=== PATIENT | male | born 1945 | race Caucasian/White ===

== ENCOUNTER → 2016-12-04 | Outpatient (CLI) | payer MEDICARE, OTHER | END | disposition home or self-care (01) | LOC: GMAL 10:39 | PROVIDERS: ATTEND Family Medicine | DX: D51.3 Other dietary vitamin B12 deficiency anemia (principal); E55.9 Vitamin D deficiency, unspecified ==

== ENCOUNTER → 2017-07-16 | Outpatient (CLI) | payer MEDICARE, OTHER | END | disposition home or self-care (01) | LOC: GMAL 10:41 | PROVIDERS: ATTEND Family Medicine | DX: Z12.5 Encounter for screening for malignant neoplasm of prostate (principal); E55.9 Vitamin D deficiency, unspecified | CPT/HCPCS: 82306; G0103 ==

== ENCOUNTER → 2017-08-13 | Outpatient (CLI) | payer MEDICARE, OTHER | LOC: GMAL 17:10 | PROVIDERS: ATTEND Family Medicine | DX: L03.116 Cellulitis of left lower limb (principal) ==

== ENCOUNTER → 2017-08-17 | Outpatient (CLI) | payer MEDICARE, OTHER ==
--- NOTE | 2017-08-17 10:12 | US ---
EXAM DESCRIPTION: Extremity,Lower Efrain Arteries CLINICAL HISTORY: 72 years Male, PVD COMPARISON: None. TECHNIQUE: Bilateral lower extremity duplex examination with grayscale, color Doppler, and spectral pulse Doppler evaluation. FINDINGS: On the right, common femoral artery demonstrates triphasic flow at 91 cm/s. Biphasic flow pattern with velocities between 84 and 114 cm/s through the superficial femoral artery is present. Biphasic wave pattern is persistent in the popliteal artery and 68 cm/s with normal velocities in the peroneal and posterior tibial artery with biphasic flow but dampened biphasic flow in the dorsalis pedis artery at 16 cm/s. On the left, the common femoral artery demonstrates triphasic flow at 82 cm/s with biphasic pattern in the superficial femoral artery between 80 and 130 cm/s. The popliteal artery demonstrates biphasic flow with peak velocities of 52 cm/s. Spectral broadening with biphasic flow at 79 cm/s in the peroneal artery is noted with a similar pattern in the posterior tibial artery at 103 cm/s. Dorsalis pedis vessel again demonstrates dampened biphasic flow at 21 cm/s. 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 More normal flow in each posterior tibial artery demonstrated. Correlation with ankle brachial indices particularly in reference to the dorsalis pedis vessel recommended. Electronically signed by: Ayan Atkins MD 08/17/2017 10:10 AM CDT
== END ==
LOC: US 08:24
PROVIDERS: ATTEND Family Medicine
DX: R60.0 Localized edema (principal); I73.9 Peripheral vascular disease, unspecified

== ENCOUNTER → 2017-08-18 | Outpatient (CLI) | payer MEDICARE, OTHER | LOC: LAB.O 13:28 | PROVIDERS: ATTEND Family Medicine | DX: R19.7 Diarrhea, unspecified (principal) ==

== ENCOUNTER → 2017-09-10 | Outpatient (CLI) | payer MEDICARE, OTHER | LOC: GMAL 15:05 | PROVIDERS: ATTEND Family Medicine | DX: D50.8 Other iron deficiency anemias (principal) ==

== ENCOUNTER → 2019-04-25 | Outpatient (CLI) | payer MEDICARE, OTHER | LOC: GMAL 10:28 | PROVIDERS: ATTEND Family Medicine | DX: R53.83 Other fatigue (principal); E55.9 Vitamin D deficiency, unspecified; I10 Essential (primary) hypertension; E11.9 Type 2 diabetes mellitus without complications ==

== ENCOUNTER → 2019-12-16 | Outpatient (CLI) | payer MEDICARE, OTHER | LOC: GMAL 12:56 | PROVIDERS: ATTEND Family Medicine | DX: D51.3 Other dietary vitamin B12 deficiency anemia (principal); E55.9 Vitamin D deficiency, unspecified; Z12.5 Encounter for screening for malignant neoplasm of prostate; R53.83 Other fatigue; E11.9 Type 2 diabetes mellitus without complications; I10 Essential (primary) hypertension; E78.2 Mixed hyperlipidemia | CPT/HCPCS: 82607; 84443; G0103 ==

== ENCOUNTER 2020-05-18 18:17 | Inpatient (IN) | payer MEDICARE, OTHER ==
--- NOTE | 2020-05-18 18:19 | ED.PDOC ---
History of Present Illness - General Stated Complaint: Fever cough and difficulty breathing Time Seen by Provider: 05/18/20 18:19 Source: patient Exam Limitations: no limitations - History of Present Illness Initial Comments: Patient complains of cough fever and shortness of breath for at least 7 days.He is unaware of any Covid exposure testing or vaccination.He is not complaining of chest pain. Patient denies upper respiratory symptoms. Timing/Duration: 1 week Severity: severe Improving Factors: rest Worsening Factors: movement Associated Symptoms: cough, fever/chills, shortness of breath Allergies/Adverse Reactions: Allergies Penicillins Allergy (Verified 05/18/20 18:36) Home Medications: Ambulatory Orders Acebutolol HCl [Sectral] 400 mg PO BID 11/20/15 Glipizide [Glipizide ER] 5 mg PO DAILY 11/20/15 Hydrochlorothiazide 50 mg PO DAILY 11/20/15 Quinapril HCl [Accupril] 40 mg PO BID 11/20/15 amLODIPine BESYLATE [Norvasc] 10 mg PO DAILY 11/20/15 Aspirin [Enteric Coated Aspirin] 325 mg PO DAILY #30 tab 11/21/15 Atorvastatin Calcium [Lipitor] 40 mg PO DAILY #30 tab 11/21/15 Review of Systems - Review of Systems Constitutional: States: chills, fever, malaise, weakness EENTM: States: no symptoms reported Respiratory: States: cough, short of breath Cardiology: States: no symptoms reported Gastrointestinal/Abdominal: States: no symptoms reported Genitourinary: States: no symptoms reported Musculoskeletal: States: no symptoms reported Skin: States: no symptoms reported Neurological: States: no symptoms reported Endocrine: States: no symptoms reported Hematologic/Lymphatic: States: no symptoms reported Past Medical History (General) - Patient Medical History Hx Seizures: No Hx Stroke: No Hx Dementia: No Hx Asthma: No Hx of COPD: No Hx Cardiac Disorders: Yes Hx Congestive Heart Failure: No Hx Pacemaker: No Hx Hypertension: Yes Hx Thyroid Disease: No Hx Diabetes: Yes Hx Gastroesophageal Reflux: No Hx Renal Disease: No Hx Cancer: No Hx of HIV: No Hx Hepatitis C: No Hx MRSA: No - Vaccination History Hx Tetanus, Diphtheria Vaccination: No Hx Influenza Vaccination: No Hx Pneumococcal Vaccination: Yes - Social History Hx Tobacco Use: No Hx Chewing Tobacco Use: No Hx Alcohol Use: No Hx Substance Use: No Hx Substance Use Treatment: No Hx Depression: No Hx Physical Abuse: No Hx Emotional Abuse: No Hx Suspected Abuse: No Family Medical History - Family History Mother Family History: Unknown Living Status: Unknown Physical Exam - Physical Exam General Appearance: Alert, Obvious distress, Ill Appearing Eye Exam: bilateral normal Ears, Nose, Throat: normal pharynx, other Neck: non-tender, full range of motion, supple Respiratory: decreased breath sounds, rales - Both lower lobes Cardiovascular/Chest: no edema, JVD Gastrointestinal/Abdominal: normal bowel sounds, non tender, soft Back Exam: normal inspection, no CVA tenderness Extremity: normal range of motion, no pedal edema, no calf tenderness Neurologic: floor waxer II-XII nml as tested, no motor/sensory deficits, alert, oriented x 3 Skin Exam: other - Cool and dry, pallor Comments: Initial oxygen saturation on room air 82% Progress - Progress Progress: 05/18/20 19:35 Comfortable now with SaO2 91 to 92% on nasal cannula 6 L/min. IV ceftriaxone 1 g, azithromycin 500 mg, and Decadron 10 mg given. 05/18/20 19:36 05/18/20 21:08 Patient comfortable without distress. SaO2 93% on 6 L nasal cannula. Discussed with hospitalist, nurse practitioner [place]: Will admit to [facility]. 05/18/20 Remdesivir 200 mg IV ordered. - Results/Orders Results/Orders: Electrocardiogram: Sinus tachycardia, 119/min. No significant interval changes. No ST segment abnormalities. EXAMINATION: Chest x-ray one view. INDICATION: Cough and fever COMPARISON: None TECHNIQUE: Frontal radiograph chest. FINDINGS: The cardiac silhouette is enlarged. Bilateral mid and lower lung zone airspace opacities, worse on the left. There is no pneumothorax. IMPRESSION: Bilateral airspace opacities, worse on the left. Findings are suspicious for atypical infections including COVID pneumonia. Continued follow-up is recommended Electronically signed by: Francy Johnson MD 05/18/2020 7:36 PM [facility] 05/18/20 18:30 BLOOD CULTURE Stat EKG STAT Oxygen STAT Pulse Ox, Continuous Monitoring STAT 05/18/20 19:00 BLOOD CULTURE Stat 05/18/20 20:22 CTA Chest [CT] Stat 05/18/20 21:07 Remdesivir 200 mg Sodium Chloride 0.9% 250Ml [NS 250ml] 250 ml IVPB ONCE 05/19/20 18:30 Oxygen STAT Pulse Ox, Continuous Monitoring STAT 05/20/20 18:30 Pulse Ox, Continuous Monitoring STAT Laboratory Results - last 24 hr 05/18/20 05/18/20 05/18/20 18:31 18:45 18:45 WBC 5.2 RBC 4.71 Hgb 14.5 Hct 42.3 MCV 89.7 MCH 30.9 MCHC 34.4 RDW 13.4 Plt Count 166 MPV 9.2 Absolute Neuts (auto) 3.90 Absolute Lymphs (auto) 0.60 L Absolute Monos (auto) 0.70 Absolute Eos (auto) 0.00 Absolute Basos (auto) 0.00 Neutrophils % 75.0 Lymphocytes % 11.4 L Monocytes % 13.2 H Eosinophils % 0.1 L Basophils % 0.3 PT INR PTT (SP) 29.3 Fibrinogen D-Dimer, Quantitative 829.0 H* pCO2 35 pO2 55 L HCO3 26.2 ABG pH 7.488 H ABG O2 Saturation 91.2 L ABG Base Excess 3.2 ABG Deoxyhemoglobin 8.6 H Oxyhemoglobin % 89.5 L Carboxyhemoglobin % 1.2 Methemoglobin % Sat 0.7 Calc Total Hemoglobin 15.2 Sodium Potassium Chloride Carbon Dioxide Anion Gap BUN Creatinine BUN/Creatinine Ratio Random Glucose Serum Osmolality Lactic Acid Calcium Magnesium Ferritin Total Bilirubin AST ALT Alkaline Phosphatase LD Total Creatine Kinase Troponin I C-Reactive Protein B-Natriuretic Peptide Serum Total Protein Albumin Globulin Albumin/Globulin Ratio 05/18/20 05/18/20 05/18/20 18:45 18:45 18:45 WBC RBC Hgb Hct MCV MCH MCHC RDW Plt Count MPV Absolute Neuts (auto) Absolute Lymphs (auto) Absolute Monos (auto) Absolute Eos (auto) Absolute Basos (auto) Neutrophils % Lymphocytes % Monocytes % Eosinophils % Basophils % PT INR PTT (SP) Fibrinogen 578 H D-Dimer, Quantitative pCO2 pO2 HCO3 ABG pH ABG O2 Saturation ABG Base Excess ABG Deoxyhemoglobin Oxyhemoglobin % Carboxyhemoglobin % Methemoglobin % Sat Calc Total Hemoglobin Sodium 135 Potassium 3.3 L Chloride 97 L Carbon Dioxide 23 Anion Gap 18.3 H BUN 23 H Creatinine 1.28 BUN/Creatinine Ratio 18.0 Random Glucose 194 H Serum Osmolality 279.1 Lactic Acid Calcium 8.1 L Magnesium 1.7 L Ferritin Total Bilirubin 1.0 AST 79 H ALT 38 Alkaline Phosphatase 41 L LD Total 373 H Creatine Kinase 783 H* Troponin I 0.05 C-Reactive Protein 13.6 H* B-Natriuretic Peptide 82.7 Serum Total Protein 7.1 Albumin 3.2 Globulin 3.9 H Albumin/Globulin Ratio 0.8 L 05/18/20 05/18/20 05/18/20 18:45 18:45 20:17 WBC RBC Hgb Hct MCV MCH MCHC RDW Plt Count MPV Absolute Neuts (auto) Absolute Lymphs (auto) Absolute Monos (auto) Absolute Eos (auto) Absolute Basos (auto) Neutrophils % Lymphocytes % Monocytes % Eosinophils % Basophils % PT 10.6 INR 1.07 PTT (SP) Fibrinogen D-Dimer, Quantitative pCO2 pO2 HCO3 ABG pH ABG O2 Saturation ABG Base Excess ABG Deoxyhemoglobin Oxyhemoglobin % Carboxyhemoglobin % Methemoglobin % Sat Calc Total Hemoglobin Sodium Potassium Chloride Carbon Dioxide Anion Gap BUN Creatinine BUN/Creatinine Ratio Random Glucose Serum Osmolality Lactic Acid 2.2 Calcium Magnesium Ferritin 1191.7 H Total Bilirubin AST ALT Alkaline Phosphatase LD Total Creatine Kinase Troponin I C-Reactive Protein B-Natriuretic Peptide Serum Total Protein Albumin Globulin Albumin/Globulin Ratio Respiratory panel Positive for Covid, negative for all other studies. Vital Signs - 24 hr 05/18/20 05/18/20 05/18/20 18:17 18:28 18:53 Temperature 101.6 F H Pulse Rate [ 114 H 114 H Pulse ox] Respiratory 24 24 Rate Blood Pressure 165/78 [R arm] O2 Sat by Pulse 83 L 91 L Oximetry 05/18/20 05/18/20 05/18/20 18:56 19:41 20:17 Temperature 101.6 F H 100.7 F H 97.7 F Pulse Rate [ 102 H 101 H Pulse ox] Respiratory 22 24 Rate Blood Pressure 155/86 138/81 [R arm] O2 Sat by Pulse 90 L 92 L Oximetry Departure - Departure Clinical Impression: Pneumonia due to 2019-nCoV, Hypoxemia Disposition: Admit Patient Referrals: Wesley Powers III, MD [Primary Care Provider] - 1-2 Weeks Home Medications: Ambulatory Orders Acebutolol HCl [Sectral] 400 mg PO BID 11/20/15 Glipizide [Glipizide ER] 5 mg PO DAILY 11/20/15 Hydrochlorothiazide 50 mg PO DAILY 11/20/15 Quinapril HCl [Accupril] 40 mg PO BID 11/20/15 amLODIPine BESYLATE [Norvasc] 10 mg PO DAILY 11/20/15 Aspirin [Enteric Coated Aspirin] 325 mg PO DAILY #30 tab 11/21/15 Atorvastatin Calcium [Lipitor] 40 mg PO DAILY #30 tab 11/21/15 Decision To Admit - Decistion To Admit Decision to Admit Date: 05/18/20 Decision to Admit Time: 21:10
[2020-05-18] MEDS ORDERED: ACETAMINOPHEN 325 MG TAB PO ONE (18:32)
[2020-05-18] MEDS ORDERED: cefTRIAXone SODIUM 1 GM in SODIUM CHL 0.9% 50ML MIN-BAG+ 50 ML IVPB ONE (19:00)
[2020-05-18] MEDS ORDERED: AZITHROMYCIN IV 500 MG in SODIUM CHLORIDE 0.9% 250ML 250 ML IVPB ONE (19:04)
[2020-05-18] MEDS ORDERED: DEXAMETHASONE INJ 10 MG/ML VIAL IV ONE (19:05)
[2020-05-18] MEDS ORDERED: SODIUM CHLORIDE 0.9% 500ML 500 ML IVS ONE (19:36)
--- NOTE | 2020-05-18 19:38 | RAD ---
EXAMINATION: Chest x-ray one view. INDICATION: Cough and fever COMPARISON: None TECHNIQUE: Frontal radiograph chest. FINDINGS: The cardiac silhouette is enlarged. Bilateral mid and lower lung zone airspace opacities, worse on the left. There is no pneumothorax. IMPRESSION: Bilateral airspace opacities, worse on the left. Findings are suspicious for atypical infections including COVID pneumonia. Continued follow-up is recommended Electronically signed by: Francy Johnson MD 05/18/2020 7:36 PM [facility]
[2020-05-18] MEDS ORDERED: REMDESIVIR 200 MG in SODIUM CHLORIDE 0.9% 250ML 250 ML IVPB ONE (21:07)
--- NOTE | 2020-05-18 21:51 | HP ---
SUPERVISING PHYSICIAN: Juan Miguel Wagner MD CHIEF COMPLAINT: Fever, difficulty breathing. HISTORY OF PRESENT ILLNESS: Mr. Shen is a 75 year-old male with a history of diabetes, hypertension and a previous CVA. He presented to the Emergency Department at the request of his . Apparently, he had been having some increasing shortness of breath along with uncontrollable cough. He denies any known exposures to Covid and he is not aware that he has had any immunization in regard to treatment. Initial laboratory studies showed a white count of 5,200 with a low lymphocytic count. Coagulation studies did show a D- dimer elevated at 829 and blood gas analysis showed hypoxemia with a P02 of 5, that was on 4 liter nasal cannula with pH 7.48, PC02 was normal at 35, bicarb normal and base excess normal. C-reactive protein was elevated at 13.6, lactic acid was normal at 2.2. Chest x-ray, single-view in the Emergency Room per radiology interpretation, showed bilateral airspace opacities, worse on the left, findings were suspicious for atypical infections including Covid pneumonia. His respiratory panel was positive for Covid, negative for influenza and all other bacterial and viral targets as tested. His initial vital signs showed oxygen saturation 82% on room air. He was given breathing treatments and started on nasal cannula which increased his 02 saturation up to 92%. He was started on ceftriaxone and azithromycin and given Decadron. He is not going to be admitted for treatment of Covid pneumonitis. He was admitted in stable condition. PAST MEDICAL HISTORY: 1. Type diabetes mellitus type 2. 2. Hypertension. 3. Benign prostatic hypertrophy. 4. Cerebrovascular accident in 2016 with left hemiparesis and lacunar infarct in putamen PAST SURGICAL HISTORY: 1. Squamous cell carcinoma, Mejias's disease, excised, right upper anterior chest, 2016. 2. Echocardiogram in 2019 showed mild left ventricular hypertrophy with estimate ejection fraction of 65%. CURRENT MEDICATIONS: 1. Tenormin 150 mg daily. 2. Metoprolol 50 mg b.i.d. 3. Pregabalin daily. 4. Lovastatin 20 mg daily. 5. Tylenol No. 3 as needed every 6 hours. 6. Ambien 10 mg daily as needed. 7. Gabapentin 200 mg daily. 8. Plavix 75 mg daily. 9. Glipizide 5 mg daily. 10. Aspirin 325 mg daily. 11. Accupril 40 mg b.i.d. 12. Hydrochlorothiazide 50 mg daily. 13. Norvasc 10 mg daily. ALLERGIES: PENICILLIN. FAMILY HISTORY: Father at age 70 due to cardiovascular disease. Mother in her 90s from advanced. He has one brother who has coronary artery disease and a sister who has type 2 diabetes. SOCIAL HISTORY: The patient retired in 2009 from [employer]. He is and lives in [place]. He drinks approximately 7 times a week. When he drinks he is averaging 4 to 5 drinks, past history of hard liquor. He has never smoked. REVIEW OF SYSTEMS: GENERAL: Positive for fevers, chills, general malaise and weakness. HEENT: Denies headaches, vision changes, sore throat, nasal congestion, earaches. RESPIRATORY: As noted in history of present illness, increasing shortness of breath with persistent cough which is nonproductive. CARDIOVASCULAR: No chest pain, no palpitations or syncopal episodes. GASTROINTESTINAL: No nausea, vomiting or diarrhea. No constipation or abdominal pain. GENITOURINARY: He denies any dysuria or hematuria or polyuria. MUSCULOSKELETAL: Denies arthralgias or joint swelling. SKIN: No unexplained lesions, rashes or moles. NEUROLOGICAL: He denies any motor deficits, no ataxia, seizures or paresthesias. HEMATOLOGICAL: Denies unexplained bleeding, bruising or transfusion reaction. PHYSICAL EXAMINATION: VITAL SIGNS: On presentation to the Emergency Room, temperature 101.6, pulse 114, blood pressure 165/78, respirations 24, oxygen saturation 93% on room air at rest. After breathing treatments showed 91 to 93% on 6 liter nasal cannula. Prior to admission after given Tylenol, his temperature was 97.7. GENERAL: The patient looks to be resting comfortably, no obvious acute distress, although he is mildly tachypneic. He is alert, he is hard of hearing. HEENT: Tympanic membranes are clear bilaterally. Oropharynx is pink, moist without any lesions. NECK: No jugular venous distention. Neck is supple, non-tender. CHEST: Lung sounds diminished therapeutic, no obvious rhonchi, rales, or wheezes. CARDIOVASCULAR: Regular rate and rhythm showing tachycardiac on the monitor. No appreciable murmurs, rubs, or gallops. ABDOMEN: Obese, soft, non-tender, positive bowel sounds. EXTREMITIES: No cyanosis, clubbing, or edema. BACK: Without CVA tenderness or vertebral tenderness. RECTAL: Exam deferred. NEUROLOGIC: He is alert and oriented x3. Cranial nerves II through XII are grossly intact. SKIN: Warm, pink and dry. LABORATORY: Initial white count was 5,200. Coagulation studies show a D-dimer of 829. Normal PT/PTT. Blood gas analysis showed alkalosis with pH of 7.488, bicarb 26, C02 of 55, PC02 of 35, oxygen saturation 91% on 6 liter nasal cannula. base excess normal at 2.3. Chemistries showed a mild hypokalemia with potassium 3.3, anion gap elevated at 18.4, BUN 23, C02 of 23. Creatinine 1.28, glucose 194, calcium 8.1, magnesium a little low at 1.7, lactic normal at 2.2. Bilirubin was normal at 1. AST slightly elevated at 79, ALT normal at 38. CPK 783, ferritin 1197, C-reactive protein 13.6. MICROBIOLOGY: Blood cultures are pending. Respiratory panel was positive for Covid, negative for influenza and all other bacterial and viral targets as tested. RADIOLOGY: Single view chest x-ray in the Emergency Room per radiology interpretation shows bilateral airspace opacities, worse in he left, findings suspicious for atypical infection include Covid pneumonia. ASSESSMENT: 1. Covid pneumonitis. 2. Hypoxic respiratory failure with mild respiratory associated alkalosis secondary to #1. 3. Diabetes mellitus type on oral therapy. 4. Hypokalemia and hypomagnesemia. 5. Hypertension. 6. Benign prostatic hypertrophy. 7. Previous cerebrovascular accident in 2016. No obvious neuro deficits on admission. PLAN: The patient is admitted for treatment of Covid pneumonitis. He was started on Remdesivir, Decadron, azithromycin and Rocephin, Lovenox, Protonix. He will have albuterol for breathing treatments with handheld inhaler with aggressive pulmonary hygiene. We will follow his labs per protocol. He will be on an insulin sliding scale per protocol. DVT prophylaxis is with Lovenox. I anticipate his length of stay to be at least 2 to 3 days. Until we can transition patient to outpatient management, we will continue to monitor and treat as needed. #[id number] [facility]
[2020-05-18] MEDS ORDERED: ALBUTEROL INHALER 64 PUFF/8GM INH PRN (22:45)
[2020-05-18] MEDS ORDERED: SODIUM CHLORIDE 0.9% (FLUSH) 10 ML SYG IV PRN (22:47)
[2020-05-18] MEDS ORDERED: DEXTROSE 50% 25 GM/50 ML SYG IV PRN (22:47)
[2020-05-18] MEDS ORDERED: GLUCAGON INJ 1 MG VIAL SUBCU PRN (22:47)
[2020-05-18] MEDS ORDERED: PANTOPRAZOLE SODIUM IV 40 MG VIAL IV SCH (23:00)
[2020-05-19] MEDS: IV SET AND CAP CHANGE INJ INJ SCH (00:04)
[2020-05-19] MEDS: PANTOPRAZOLE SODIUM IV 40 MG VIAL IV SCH (06:04)
[2020-05-19] MEDS: INSULIN LISPRO 100 UNITS/ML PEN SUBCU SCH ×4 (07:35→20:54)
--- NOTE | 2020-05-19 07:57 | RAD ---
PROCEDURE: XR CHEST 1 VIEW HISTORY: COVID PNA COMPARISON: Portable chest, 05/18/2020 FINDINGS: The heart is enlarged. Patchy bilateral pulmonary infiltrates again seen, left greater than right, unchanged. There is persistent asymmetric elevation of the right hemidiaphragm with right basilar atelectasis. No pleural effusion or pneumothorax. IMPRESSION: Stable chest with patchy pulmonary infiltrates concerning for multifocal pneumonia/COVID. Electronically signed by: Milind Cardozo MD 05/19/2020 7:55 AM [employer]
[2020-05-19] MEDS ORDERED: DEXAMETHASONE INJ 10 MG/ML VIAL ONE (08:01)
[2020-05-19] MEDS ORDERED: AZITHROMYCIN IV 500 MG VIAL IVPB ONE (08:01)
[2020-05-19] MEDS ORDERED: cefTRIAXone SODIUM 1 GM VIAL ONE (08:02)
[2020-05-19] MEDS ORDERED: SODIUM CHL 0.9% 50ML MIN-BAG+ 50 ML IVPB ONE (08:02)
[2020-05-19] MEDS ORDERED: SODIUM CHLORIDE 0.9% 250ML 250 ML ONE ×2 (08:02→10:47)
[2020-05-19] MEDS: ALBUTEROL INHALER 64 PUFF/8GM INH SCH ×4 (08:30→19:30)
[2020-05-19] MEDS: DEXAMETHASONE INJ 10 MG/ML VIAL IV SCH (08:37)
[2020-05-19] MEDS: BIFIDOBACTERIUM INFANTIS 4 MG CAP PO SCH (08:37)
[2020-05-19] MEDS: cefTRIAXone SODIUM 1 GM in SODIUM CHL 0.9% 50ML MIN-BAG+ 50 ML IVPB SCH (08:37)
[2020-05-19] MEDS: AZITHROMYCIN IV 500 MG in SODIUM CHLORIDE 0.9% 250ML 250 ML IVPB SCH (08:37)
[2020-05-19] MEDS: ENOXAPARIN SODIUM 40 MG/0.4 ML SYG SUBCU SCH (08:38)
[2020-05-19] MEDS ORDERED: REMDESIVIR IV 100 MG VIAL ONE (10:47)
[2020-05-19] MEDS: REMDESIVIR 100 MG in SODIUM CHLORIDE 0.9% 250ML 250 ML IVPB SCH (11:50)
[2020-05-19] MEDS ORDERED: ACETAMINOPHEN W/COD #3 TAB 1 EA TAB PO PRN (13:07)
[2020-05-19] MEDS ORDERED: METOPROLOL TARTRATE INJ 5 MG/5 ML VIAL IV ONE (13:14)
[2020-05-19] MEDS ORDERED: NON-FORMULARY MEDICATION 1 EA MIS (Atenolol [Tenormin] 50 MG) PO SCH (13:15)
[2020-05-19] MEDS ORDERED: glipiZIDE EXTENDED REL (XL) 5 MG TAB PO SCH (13:30)
[2020-05-19] MEDS ORDERED: hydroCHLOROthiazide 25 MG TAB ONE (13:32)
[2020-05-19] MEDS ORDERED: glipiZIDE EXTENDED REL (XL) 2.5 MG TAB PO ONE (13:33)
[2020-05-19] MEDS: HYDROCHLOROTHIAZIDE 50 MG PO SCH (13:39)
[2020-05-19] MEDS: GABAPENTIN 100 MG CAP PO SCH (13:40)
[2020-05-19] MEDS: ASPIRIN (ENTERIC COATED) 325 MG TAB PO SCH (13:40)
[2020-05-19] MEDS: QUINAPRIL HCL 40 MG PO SCH ×2 (13:40→20:54)
[2020-05-19] MEDS: METOPROLOL TARTRATE 50 MG TAB PO SCH ×2 (13:40→20:54)
[2020-05-19] MEDS: amLODIPine BESYLATE 5 MG TAB PO SCH (13:41)
--- NOTE | 2020-05-19 16:18 | PN ---
SUPERVISING PHYSICIAN: Juan Miguel Wagner MD DATE: 05/19/20 SUBJECTIVE: The patient is still having some shortness of breath and still requiring some high flow nasal cannula. He has not had any chest pain, nausea or vomiting. He has remained afebrile since admission. T-max temperature 98.1. OBJECTIVE: VITAL SIGNS: Temperature 98.1, T-max. blood pressure 168/93, respirations 22, heart rate 110, oxygen saturation 92% on 6 liter nasal cannula. GENERAL: The patient is resting comfortably. He is still a little tachypneic but does not show to be in any significant distress. CHEST: Sounds remain diminished throughout. No obvious rhonchi, rales, or wheezes. CARDIAC: Regular rate and rhythm. still showing to be tachycardic on the bedside monitor. ABDOMEN: Obese, soft, non-tender, positive bowel sounds. EXTREMITIES: Without cyanosis, clubbing, or edema. NEUROLOGIC: He is alert and oriented x3. LABORATORY: White count 3,400, hemoglobin 13.8, hematocrit 40.3, platelet count 144,000. Differential shows to be without a left shift but continued decrease in leukocytes. Coagulation studies show D-dimer is down to 721. Chemistries show normal electrolytes. Creatinine 1.6, blood sugar range between 222 and 267. Calcium 7.9, corrected to 8.2 for albumin of 2.8. Magnesium 1.9. Liver functions show slightly elevated AST at 84, C-reactive protein 13.5. RADIOLOGY: Repeat chest x-ray this morning, single-view, shows stable chest with patchy pulmonary infiltrates concerning for multifocal pneumonia/Covid. ASSESSMENT: 1. Covid pneumonitis. 2. Hypoxic respiratory failure with mild respiratory associated alkalosis secondary to #1. 3. Diabetes mellitus type on oral therapy. 4. Mild electrolyte imbalance hypokalemia and hypomagnesemia. 5. Hypertension. 6. Benign prostatic hypertrophy. 7. Previous cerebrovascular accident in 2016. No obvious neuro deficits on admission. PLAN: Will continue with current treatment plan, will cover for antibiotics including azithromycin, Rocephin, he remains on Decadron, sliding scale and Protonix. He is on Lovenox for DVT prophylaxis. Will continue to titrate his oxygen down as needed and provide aggressive pulmonary hygiene with albuterol treatments. Waiting for his medications to be updated and verified and will resume those as appropriate to care. I would anticipate at least another 24 to 48 hours. Until we can transition patient to outpatient management, we will continue to monitor and treat as needed. #[id number] [facility]
[2020-05-19] MEDS: NON-FORMULARY MEDICATION 1 EA MIS (Lovastatin [Lovastatin] 20 MG) PO SCH (20:54)
[2020-05-19] MEDS ORDERED: LISINOPRIL 10 MG TAB PO ONE (21:33)
[2020-05-19] MEDS ORDERED: ACETAMINOPHEN 325 MG TAB ONE (23:34)
[2020-05-19] MEDS: ACETAMINOPHEN 325 MG TAB PO PRN (23:52)
[2020-05-20] MEDS ORDERED: PANTOPRAZOLE SODIUM IV 40 MG VIAL ONE (03:23)
[2020-05-20] MEDS: PANTOPRAZOLE SODIUM IV 40 MG VIAL IV SCH (06:10)
--- NOTE | 2020-05-20 07:14 | RAD ---
PROCEDURE: XR CHEST 1 VIEW HISTORY: COVID PNA COMPARISON: Portable chest, 05/19/2020 FINDINGS: The heart is enlarged. The lungs are markedly under aerated which limits evaluation. Left basilar airspace disease again noted. No definite pleural effusion or pneumothorax. IMPRESSION: Underaeration of the lungs limits evaluation. There is persistent left basilar airspace disease, not significantly changed given the difference in technique. Electronically signed by: Milind Cardozo MD 05/20/2020 7:13 AM [facility]
[2020-05-20] MEDS ORDERED: DEXAMETHASONE INJ 10 MG/ML VIAL ONE (07:26)
[2020-05-20] MEDS ORDERED: amLODIPine BESYLATE 5 MG TAB ONE (07:26)
[2020-05-20] MEDS ORDERED: METOPROLOL TARTRATE 50 MG TAB ONE ×2 (07:26→19:19)
[2020-05-20] MEDS ORDERED: ASPIRIN (ENTERIC COATED) 325 MG TAB PO ONE (07:26)
[2020-05-20] MEDS ORDERED: AZITHROMYCIN IV 500 MG VIAL IVPB ONE (07:26)
[2020-05-20] MEDS ORDERED: BIFIDOBACTERIUM INFANTIS 4 MG CAP ONE (07:26)
[2020-05-20] MEDS ORDERED: hydroCHLOROthiazide 25 MG TAB ONE (07:26)
[2020-05-20] MEDS ORDERED: ENOXAPARIN SODIUM 40 MG/0.4 ML SYG SUBCU ONE (07:27)
[2020-05-20] MEDS ORDERED: SODIUM CHL 0.9% 50ML MIN-BAG+ 50 ML IVPB ONE (07:27)
[2020-05-20] MEDS ORDERED: SODIUM CHLORIDE 0.9% 250ML 250 ML ONE ×2 (07:27→11:47)
[2020-05-20] MEDS ORDERED: GABAPENTIN 100 MG CAP ONE (07:27)
[2020-05-20] MEDS ORDERED: REMDESIVIR IV 100 MG VIAL ONE (07:27)
[2020-05-20] MEDS ORDERED: cefTRIAXone SODIUM 1 GM VIAL ONE (07:27)
[2020-05-20] MEDS: INSULIN LISPRO 100 UNITS/ML PEN SUBCU SCH ×4 (07:45→21:24)
[2020-05-20] MEDS: ALBUTEROL INHALER 64 PUFF/8GM INH SCH ×4 (08:30→20:58)
[2020-05-20] MEDS: METOPROLOL TARTRATE 50 MG TAB PO SCH ×2 (08:38→21:23)
[2020-05-20] MEDS: DEXAMETHASONE INJ 10 MG/ML VIAL IV SCH (08:38)
[2020-05-20] MEDS: GABAPENTIN 100 MG CAP PO SCH (08:39)
[2020-05-20] MEDS: ENOXAPARIN SODIUM 40 MG/0.4 ML SYG SUBCU SCH (08:39)
[2020-05-20] MEDS: ASPIRIN (ENTERIC COATED) 325 MG TAB PO SCH (08:39)
[2020-05-20] MEDS: BIFIDOBACTERIUM INFANTIS 4 MG CAP PO SCH (08:39)
[2020-05-20] MEDS: amLODIPine BESYLATE 5 MG TAB PO SCH (08:39)
[2020-05-20] MEDS: HYDROCHLOROTHIAZIDE 50 MG PO SCH (08:40)
[2020-05-20] MEDS: QUINAPRIL HCL 40 MG PO SCH ×2 (08:40→21:24)
[2020-05-20] MEDS: AZITHROMYCIN IV 500 MG in SODIUM CHLORIDE 0.9% 250ML 250 ML IVPB SCH (08:41)
[2020-05-20] MEDS: cefTRIAXone SODIUM 1 GM in SODIUM CHL 0.9% 50ML MIN-BAG+ 50 ML IVPB SCH (08:41)
[2020-05-20] MEDS ORDERED: POTASSIUM CHLORIDE 20 MEQ TAB PO ONE (11:30)
[2020-05-20] MEDS: REMDESIVIR 100 MG in SODIUM CHLORIDE 0.9% 250ML 250 ML IVPB SCH (11:49)
--- NOTE | 2020-05-20 16:04 | PN ---
SUPERVISING PHYSICIAN: Juan Miguel Wagner MD DATE: 05/20/20 SUBJECTIVE: The patient is still having some shortness of breath. Otherwise, he is fairly stable. His 02 requirements have been going up but he seems to be fairly stable at this point. He has been a little tachycardiac but he is on some beta blockers. Otherwise, no chest pain, no . OBJECTIVE: VITAL SIGNS: Temperature 98, pulse 744, blood pressure 130/77, respirations 20, oxygen saturation 93 to 94% on 6 liter nasal cannula. GENERAL: The patient is resting comfortably. He is still a little tachypneic but does not show to be in any significant distress. CHEST: Sounds remain diminished throughout. No obvious rhonchi, rales, or wheezes. CARDIAC: Regular rate and rhythm. still showing to be tachycardic on the bedside monitor. ABDOMEN: Obese, soft, non-tender, positive bowel sounds. EXTREMITIES: Without cyanosis, clubbing, or edema. NEUROLOGIC: He is alert and oriented x3. LABORATORY: White count 11.100, hemoglobin 14.1, hematocrit 40.7, platelet count 213,000. Differential does show a left shift but no bands. Coagulation studies show D-dimer normalized to 268. Chemistries show mild hypokalemia with potassium 3.2 but his magnesium has normalized at 2.1. Creatinine 1.22. BUN 39, C02 is normal at 22. Blood sugars range between 192 and 197. Liver functions show elevated AST at 143, ALT 61, CK elevated at 2244. Troponin normal at 0.05. C-reactive protein 8.3, this is down from admission of 13.6. MICROBIOLOGY: Blood cultures remain negative at 24 hours. RADIOLOGY: Repeat chest x-ray, this morning, single-view, per radiology interpretation, shows under aeration of the lungs limits evaluation but there is persistent left basilar airspace disease. No significant change given the difference in technique. Please see that report for details. ASSESSMENT: 1. Covid pneumonitis with persistent hypoxia. 2. Diabetes mellitus type 2 on oral therapy. 3. Mild electrolyte imbalance in the form of hypokalemia. 4. Hypertension. 5. Benign prostatic hypertrophy. 6. Previous cerebrovascular accident in 2016. No obvious defects on admission. PLAN: Will continue with current plan of care with antibiotics to include azithromycin, Rocephin, he is on Decadron, Lovenox,Protonix and Remdesivir. Will continue to work to titrate his oxygen requirements down as he tolerates. He remains on aggressive pulmonary hygiene. We will resume his home medications. We need to take a look at his home medications to clarify with Dr. Powers because he was on 2 different beta blockers including metoprolol b.i.d. and Tenormin. At this point he is just on metoprolol. I would think he could probably be able to go home within the next 1 to 2 days. Hopefully, he will tolerate titrating down to at least 94% and probably go home on oxygen. His labs seem to be stabilizing and returning to baseline levels. Until we can transition patient to outpatient management, we will continue to monitor and treat as needed. [facility][id number] [facility]
[2020-05-20] MEDS ORDERED: ACETAMINOPHEN 325 MG TAB ONE (17:50)
[2020-05-20] MEDS: ACETAMINOPHEN 325 MG TAB PO PRN (17:53)
[2020-05-20] MEDS: NON-FORMULARY MEDICATION 1 EA MIS (Lovastatin [Lovastatin] 20 MG) PO SCH (21:23)
[2020-05-20] MEDS: guaiFENesin ER TAB 600 MG TAB PO SCH (21:23)
[2020-05-20] MEDS: TEMAZEPAM 15 MG CAP PO PRN (21:23)
[2020-05-21] MEDS ORDERED: PANTOPRAZOLE SODIUM IV 40 MG VIAL ONE (03:05)
[2020-05-21] MEDS: PANTOPRAZOLE SODIUM IV 40 MG VIAL IV SCH (06:01)
--- NOTE | 2020-05-21 06:30 | RAD ---
EXAM: Chest 1 View HISTORY: COVID PNA COMPARISON: Chest 1 View AP 05/20/2020 TECHNIQUE: Chest 1 View AP FINDINGS: Limited exam due to marked decreased inspiration (decreased lung volumes) and patient body habitus. Trachea midline. Cardiac silhouette appears grossly stable. Mild hazy bilateral lung opacities. No pneumothorax is grossly seen. Cervical and bilateral AC DJD. IMPRESSION: Limited exam again due to marked decreased inspiration (decreased lung volumes) and patient body habitus. Mild hazy bilateral lung opacities again seen. Electronically signed by: Arthur Hinojosa MD 05/21/2020 6:29 AM [facility]
[2020-05-21] MEDS: INSULIN LISPRO 100 UNITS/ML PEN SUBCU SCH ×4 (07:45→20:39)
[2020-05-21] MEDS ORDERED: POTASSIUM CHLORIDE 20 MEQ TAB PO ONE (08:10)
[2020-05-21] MEDS ORDERED: amLODIPine BESYLATE 5 MG TAB ONE (08:23)
[2020-05-21] MEDS ORDERED: DEXAMETHASONE INJ 10 MG/ML VIAL ONE (08:23)
[2020-05-21] MEDS ORDERED: hydroCHLOROthiazide 25 MG TAB ONE (08:23)
[2020-05-21] MEDS ORDERED: GABAPENTIN 100 MG CAP ONE (08:24)
[2020-05-21] MEDS ORDERED: REMDESIVIR IV 100 MG VIAL ONE (08:24)
[2020-05-21] MEDS ORDERED: METOPROLOL TARTRATE 50 MG TAB ONE (08:24)
[2020-05-21] MEDS ORDERED: ENOXAPARIN SODIUM 40 MG/0.4 ML SYG SUBCU ONE (08:24)
[2020-05-21] MEDS ORDERED: BIFIDOBACTERIUM INFANTIS 4 MG CAP ONE (08:24)
[2020-05-21] MEDS ORDERED: SODIUM CHLORIDE 0.9% 250ML 250 ML ONE (08:24)
[2020-05-21] MEDS ORDERED: ASPIRIN (ENTERIC COATED) 325 MG TAB PO ONE (08:24)
[2020-05-21] MEDS: HYDROCHLOROTHIAZIDE 50 MG PO SCH (08:40)
[2020-05-21] MEDS: ALBUTEROL INHALER 64 PUFF/8GM INH SCH ×4 (08:40→21:00)
[2020-05-21] MEDS: BIFIDOBACTERIUM INFANTIS 4 MG CAP PO SCH (08:41)
[2020-05-21] MEDS: GABAPENTIN 100 MG CAP PO SCH (08:41)
[2020-05-21] MEDS: amLODIPine BESYLATE 5 MG TAB PO SCH (08:41)
[2020-05-21] MEDS: guaiFENesin ER TAB 600 MG TAB PO SCH ×2 (08:42→20:10)
[2020-05-21] MEDS: ASPIRIN (ENTERIC COATED) 325 MG TAB PO SCH (08:42)
[2020-05-21] MEDS: METOPROLOL TARTRATE 50 MG TAB PO SCH ×2 (08:42→20:10)
[2020-05-21] MEDS: REMDESIVIR 100 MG in SODIUM CHLORIDE 0.9% 250ML 250 ML IVPB SCH ×2 (08:43→08:45)
[2020-05-21] MEDS: ENOXAPARIN SODIUM 40 MG/0.4 ML SYG SUBCU SCH (08:43)
[2020-05-21] MEDS: QUINAPRIL HCL 40 MG PO SCH (08:43)
[2020-05-21] MEDS: DEXAMETHASONE INJ 10 MG/ML VIAL IV SCH ×2 (08:44→20:10)
[2020-05-21] MEDS: hydroCHLOROthiazide 25 MG TAB PO SCH (08:46)
[2020-05-21] MEDS: CLOPIDOGREL 75 MG TAB PO SCH (08:49)
[2020-05-21] MEDS: LISINOPRIL 10 MG TAB PO SCH ×2 (08:49→20:10)
--- NOTE | 2020-05-21 09:56 | PN ---
SUPERVISING PHYSICIAN: Wagner Vergara MD DATE: 05/21/20 SUBJECTIVE: The patient is wanting to go home today. However, he is still on 6 liters via nasal cannula. O2 saturations are around 93 to 94%. He is also tachycardic. He is not really complaining of any shortness of breath, however, visibly, he is a little tachypneic. OBJECTIVE: VITAL SIGNS: Blood pressure 143/80, heart rate 120, temperature 97.0, respiratory rate 24, O2 saturation 94% on 6 liters. GENERAL: Mr. Shen is a 75-year-old male patient who is in no active distress currently. NEUROLOGIC: The patient is alert. LUNGS: Diminished. CARDIOVASCULAR: Regular rate and rhythm, which is sinus tachycardia per the tank charger. ABDOMEN: Soft, obese. Positive bowel sounds. EXTREMITIES: Lower extremities with no edema. LABORATORY: White count 13.3, hemoglobin 14.7, platelet count 262. D-dimer down to 368 from 721. Chemistry with a slightly low potassium at 3.4, BUN up at 43. Glucose 194. RADIOLOGY: Chest x-ray done today shows poor inspiratory effort. ASSESSMENT: 1. Acute hypoxemic respiratory failure. 2. COVID-19 pneumonitis. 3. Diabetes mellitus, type 2. 4. Hypokalemia. 5. Hypertension. 6. Benign prostatic hypertrophy. 7. History of stroke. PLAN: Potassium replacement has been ordered. Due to his continued oxygen requirements at 6 liters, I am going to increase the dexamethasone to b.i.d. We will continue the remdesivir, empiric antibiotics and bronchodilator therapy. We will continue to monitor the labs and x-rays as needed. He really wanted to go home, however, I did explain to him that he could not on the amount of oxygen that he is on. We will continue to wean this as tolerated and try to get him to around 2 to 3 liters where he can go home. [facility][id number] [facility]
[2020-05-21] MEDS: AZITHROMYCIN IV 500 MG in SODIUM CHLORIDE 0.9% 250ML 250 ML IVPB SCH (11:02)
[2020-05-21] MEDS: cefTRIAXone SODIUM 1 GM in SODIUM CHL 0.9% 50ML MIN-BAG+ 50 ML IVPB SCH (11:03)
[2020-05-21] MEDS ORDERED: SIMVASTATIN 10 MG TAB PO ONE (19:12)
[2020-05-21] MEDS ORDERED: PREGABALIN 75 MG CAP ONE (19:13)
[2020-05-21] MEDS: PREGABALIN 75 MG CAP PO SCH (20:09)
[2020-05-21] MEDS: SIMVASTATIN 10 MG TAB PO SCH (20:10)
[2020-05-21] MEDS: TEMAZEPAM 15 MG CAP PO PRN (20:10)
[2020-05-22] MEDS ORDERED: PANTOPRAZOLE SODIUM TAB 40 MG PO ONE (03:20)
[2020-05-22] MEDS: IV SET AND CAP CHANGE INJ INJ SCH (05:47)
[2020-05-22] MEDS: PANTOPRAZOLE SODIUM TAB 40 MG PO SCH (05:48)
--- NOTE | 2020-05-22 07:23 | RAD ---
EXAM: XR Chest, 1 View CLINICAL HISTORY: The patient is 75 years old and is Male; pneumonia TECHNIQUE: Single upright portable view of the chest. COMPARISON: May 2020 5:56 AM. FINDINGS: Lungs: Left basilar subsegmental atelectasis or infiltrate. Pleural space: Unremarkable. No pneumothorax. Heart: Cardiomediastinal silhouette is not significantly changed given the differences in technique. Mediastinum: See above. Bones/joints: The bones and joints are unchanged as visualized. Upper abdomen: Elevated right hemidiaphragm. No free air. IMPRESSION: Left basilar subsegmental atelectasis or infiltrate again noted. Electronically signed by: Akiko Tafoya MD 05/22/2020 7:21 AM [employer]
[2020-05-22] MEDS: INSULIN LISPRO 100 UNITS/ML PEN SUBCU SCH ×4 (07:30→21:57)
[2020-05-22] MEDS: DEXAMETHASONE INJ 10 MG/ML VIAL IV SCH ×2 (08:01→21:42)
[2020-05-22] MEDS: BIFIDOBACTERIUM INFANTIS 4 MG CAP PO SCH (08:01)
[2020-05-22] MEDS: amLODIPine BESYLATE 5 MG TAB PO SCH (08:02)
[2020-05-22] MEDS: CLOPIDOGREL 75 MG TAB PO SCH (08:02)
[2020-05-22] MEDS: GABAPENTIN 100 MG CAP PO SCH (08:02)
[2020-05-22] MEDS: METOPROLOL TARTRATE 50 MG TAB PO SCH ×2 (08:02→21:43)
[2020-05-22] MEDS: guaiFENesin ER TAB 600 MG TAB PO SCH ×2 (08:02→21:44)
[2020-05-22] MEDS: ASPIRIN (ENTERIC COATED) 325 MG TAB PO SCH (08:02)
[2020-05-22] MEDS: ENOXAPARIN SODIUM 40 MG/0.4 ML SYG SUBCU SCH (08:03)
[2020-05-22] MEDS: hydroCHLOROthiazide 25 MG TAB PO SCH (08:03)
[2020-05-22] MEDS: LISINOPRIL 10 MG TAB PO SCH ×2 (08:03→21:43)
[2020-05-22] MEDS: AZITHROMYCIN IV 500 MG in SODIUM CHLORIDE 0.9% 250ML 250 ML IVPB SCH (08:03)
[2020-05-22] MEDS: cefTRIAXone SODIUM 1 GM in SODIUM CHL 0.9% 50ML MIN-BAG+ 50 ML IVPB SCH (08:19)
[2020-05-22] MEDS: ALBUTEROL INHALER 64 PUFF/8GM INH SCH ×4 (08:25→21:06)
--- NOTE | 2020-05-22 10:42 | PN ---
SUPERVISING PHYSICIAN: Wagner Vergara MD DATE: 05/22/20 SUBJECTIVE: The patient states he is not short of breath, but obviously visibly is a little bit tachypneic. He states he slept fairly decently last night. OBJECTIVE: VITAL SIGNS: Blood pressure 123/80, heart rate 110, temperature 97.5, respiratory rate 24, O2 saturation 92% on 7 liters via nasal cannula. GENERAL: Mr. Shen is a 75-year-old male patient who is in mild respiratory distress at rest. NEUROLOGIC: The patient is alert and oriented. LUNGS: Diminished bilaterally. CARDIOVASCULAR: Regular rate and rhythm, normal S1, S2. ABDOMEN: Soft. Positive bowel sounds. EXTREMITIES: Lower extremities with no edema. Pulses 2+. Capillary refill less than 2 seconds. LABORATORY: White count 12.4, hemoglobin 14.2, platelet count 284. D-dimer down to 169. Chemistry shows sodium 139, potassium 3.9, chloride 106, CO2 19, BUN 46, creatinine 1.25, glucose 228, calcium 8.4, total bilirubin 1.3, AST 176, ALT 111, CRP 4.6. RADIOLOGY: Chest x-ray with no significant acute changes compare to previous x- rays. ASSESSMENT: 1. Acute hypoxemic respiratory failure. 2. COVID pneumonitis. 3. Diabetes mellitus, type 2. 4. Hypokalemia, resolved. 5. Hypertension. 6. Benign prostatic hypertrophy. 7. History of stroke. 8. Transaminitis. PLAN: We will continue remdesivir, dexamethasone and empiric antibiotics. We will continue the bronchodilator and bronchial hygiene as well. We will monitor the transaminases. He does not have any abdominal pain. He has gone up 1 liter in his oxygen requirements. He continues to want to go home, however, at this point not only is his oxygen not in a range where he could go home, but he is also still a little bit tachypneic. We will continue to monitor labs and x-rays as needed. [facility][id number] [facility]
[2020-05-22] MEDS: REMDESIVIR 100 MG in SODIUM CHLORIDE 0.9% 250ML 250 ML IVPB SCH (11:02)
[2020-05-22] MEDS ORDERED: FUROSEMIDE INJ 20 MG/2 ML VIAL ONE (15:40)
[2020-05-22] MEDS ORDERED: FUROSEMIDE INJ 20 MG/2 ML VIAL IV ONE (15:42)
[2020-05-22] MEDS: PREGABALIN 75 MG CAP PO SCH (21:43)
[2020-05-22] MEDS: SIMVASTATIN 10 MG TAB PO SCH (21:43)
[2020-05-22] MEDS: TEMAZEPAM 15 MG CAP PO PRN (21:44)
[2020-05-22] MEDS: ACETAMINOPHEN 325 MG TAB PO PRN (21:44)
[2020-05-22] MEDS: MORPHINE SULFATE INJ 10 MG/ML VIAL IV PRN (23:45)
[2020-05-23] MEDS: PANTOPRAZOLE SODIUM TAB 40 MG PO SCH (05:42)
[2020-05-23] MEDS: INSULIN LISPRO 100 UNITS/ML PEN SUBCU SCH ×4 (07:45→20:57)
[2020-05-23] MEDS: ALBUTEROL INHALER 64 PUFF/8GM INH SCH ×4 (08:00→19:15)
[2020-05-23] MEDS: BIFIDOBACTERIUM INFANTIS 4 MG CAP PO SCH (08:32)
[2020-05-23] MEDS: METOPROLOL TARTRATE 50 MG TAB PO SCH ×2 (08:33→20:44)
[2020-05-23] MEDS: hydroCHLOROthiazide 25 MG TAB PO SCH (08:33)
[2020-05-23] MEDS: CLOPIDOGREL 75 MG TAB PO SCH (08:33)
[2020-05-23] MEDS: guaiFENesin ER TAB 600 MG TAB PO SCH ×2 (08:33→20:44)
[2020-05-23] MEDS: ASPIRIN (ENTERIC COATED) 325 MG TAB PO SCH (08:33)
[2020-05-23] MEDS: LISINOPRIL 10 MG TAB PO SCH ×2 (08:33→20:44)
[2020-05-23] MEDS: GABAPENTIN 100 MG CAP PO SCH (08:33)
[2020-05-23] MEDS: amLODIPine BESYLATE 5 MG TAB PO SCH (08:33)
[2020-05-23] MEDS: DEXAMETHASONE INJ 10 MG/ML VIAL IV SCH ×2 (08:34→20:43)
[2020-05-23] MEDS: ENOXAPARIN SODIUM 40 MG/0.4 ML SYG SUBCU SCH (08:34)
[2020-05-23] MEDS: cefTRIAXone SODIUM 1 GM in SODIUM CHL 0.9% 50ML MIN-BAG+ 50 ML IVPB SCH (08:34)
--- NOTE | 2020-05-23 15:47 | PN ---
SUPERVISING PHYSICIAN: Wagner Vergara MD DATE: 05/23/20 SUBJECTIVE: The patient is still on BiPAP. He is maintaining BiPAP okay although he is pretty adamant he does not want to wear the mask. He is without chest pain. He is not quite as tachypneic since being placed on BiPAP. OBJECTIVE: VITAL SIGNS: Temperature 97.0, pulse 98, blood pressure 136/87, respirations 18, saturation 97% on BiPAP at 50% FiO2 with settings at 14/8. On high flow at 8 liters nasal cannula, he is only maintaining 93%. GENERAL: The patient seems to be resting fairly comfortably on BiPAP. He is alert. CHEST: Lung sounds are fairly clear, just a little diminished towards the bases. HEART: Regular rate and rhythm. ABDOMEN: Obese, but soft and nontender. Positive bowel sounds. EXTREMITIES: No edema. NEUROLOGIC: Alert and oriented times three. LABORATORY: White count up to 18,600 with a left shift and 2 bands. Coagulation studies show D-dimer normalized. Chemistries show creatinine up a little bit at 1.52, osmolality is 305. C-reactive protein is at 2.9. Otherwise, other electrolytes are within normal limits. Blood sugar remains elevated between 213 and 238. MICROBIOLOGY: Blood cultures are negative at 4 days. RADIOLOGY: No additional radiographic studies this morning. ASSESSMENT: 1. Acute hypoxemic respiratory failure. 2. COVID pneumonitis. 3. Diabetes mellitus, type 2. 4. Hypokalemia, resolved. 5. Hypertension. 6. Benign prostatic hypertrophy. 7. History of stroke. 8. Transaminitis. PLAN: We will continue on BiPAP as tolerated and work to titrate his oxygen down back to nasal cannula. He does remain on remdesivir, Decadron and antibiotics. We will continue aggressive pulmonary hygiene. Hopefully, we will be able to titrate his oxygen down. He is not quite as tachypneic today, so that is at least a little progress. We will repeat his labs tomorrow based off that his white count did go up, but he is on a double dose of Decadron. We will continue to follow his x-rays. Until the patient can transition to outpatient management, we will continue to monitor and treat as needed. #[id number] [facility]
[2020-05-23] MEDS ORDERED: MORPHINE SULFATE INJ 10 MG/ML VIAL IV ONE (19:35)
[2020-05-23] MEDS: SIMVASTATIN 10 MG TAB PO SCH (20:44)
[2020-05-23] MEDS: PREGABALIN 75 MG CAP PO SCH (20:44)
[2020-05-24] MEDS: PANTOPRAZOLE SODIUM TAB 40 MG PO SCH (05:56)
[2020-05-24] MEDS: INSULIN LISPRO 100 UNITS/ML PEN SUBCU SCH ×4 (07:30→20:41)
--- NOTE | 2020-05-24 07:56 | RAD ---
EXAM: XR Chest, 1 View CLINICAL HISTORY: covid pna TECHNIQUE: Frontal view of the chest. COMPARISON: 05/22/2020 FINDINGS: Lungs: Stable right diaphragmatic elevation. There is worsening consolidation in the left lung. There is mild increased interstitial opacity in the right upper lung. Pleural space: No pneumothorax. No pleural effusion. Heart: Stable large cardiac shadow. Mediastinum: No abnormality noted. Bones/joints: No osseous destruction or sclerosis noted. IMPRESSION: Worsening pneumonia. Electronically signed by: Ruth Ann Rosario MD 05/24/2020 7:55 AM [employer]
[2020-05-24] MEDS: ALBUTEROL INHALER 64 PUFF/8GM INH SCH ×4 (08:35→20:15)
[2020-05-24] MEDS: cefTRIAXone SODIUM 1 GM in SODIUM CHL 0.9% 50ML MIN-BAG+ 50 ML IVPB SCH (11:05)
[2020-05-24] MEDS: BIFIDOBACTERIUM INFANTIS 4 MG CAP PO SCH (11:05)
[2020-05-24] MEDS: LISINOPRIL 10 MG TAB PO SCH ×2 (11:06→21:18)
[2020-05-24] MEDS: amLODIPine BESYLATE 5 MG TAB PO SCH (11:06)
[2020-05-24] MEDS: GABAPENTIN 100 MG CAP PO SCH (11:06)
[2020-05-24] MEDS: METOPROLOL TARTRATE 50 MG TAB PO SCH ×2 (11:06→21:18)
[2020-05-24] MEDS: ASPIRIN (ENTERIC COATED) 325 MG TAB PO SCH (11:06)
[2020-05-24] MEDS: CLOPIDOGREL 75 MG TAB PO SCH (11:07)
[2020-05-24] MEDS: DEXAMETHASONE INJ 10 MG/ML VIAL IV SCH ×2 (11:07→20:36)
[2020-05-24] MEDS: ENOXAPARIN SODIUM 40 MG/0.4 ML SYG SUBCU SCH (11:07)
[2020-05-24] MEDS: guaiFENesin ER TAB 600 MG TAB PO SCH ×2 (11:07→20:36)
[2020-05-24] MEDS: hydroCHLOROthiazide 25 MG TAB PO SCH (11:07)
[2020-05-24] MEDS: INSULIN DETEMIR 100 UNITS/ML PEN SUBCU SCH ×2 (11:10→20:41)
[2020-05-24] MEDS ORDERED: INSULIN LISPRO 100 UNITS/ML PEN SUBCU SCH (11:30)
[2020-05-24] MEDS: MORPHINE SULFATE INJ 10 MG/ML VIAL IV PRN (15:40)
[2020-05-24] MEDS ORDERED: SODIUM CHLORIDE 0.9% 250ML 250 ML IVS ONE (20:31)
[2020-05-24] MEDS: PREGABALIN 75 MG CAP PO SCH (20:36)
[2020-05-24] MEDS: SIMVASTATIN 10 MG TAB PO SCH (20:36)
[2020-05-24] MEDS ORDERED: INSULIN DETEMIR 100 UNITS/ML PEN SUBCU SCH (21:00)
[2020-05-24] MEDS: IV SET AND CAP CHANGE INJ INJ SCH (23:00)
[2020-05-25] MEDS: PANTOPRAZOLE SODIUM TAB 40 MG PO SCH (05:58)
--- NOTE | 2020-05-25 05:58 | RAD ---
EXAM: Chest Radiography COMPARISON: Chest radiograph May 24, 2020 INDICATION: MAIN COVID PNA FINDINGS: A single AP view of the chest demonstrates an indistinct cardiomediastinal silhouette. No pneumothorax. Small left pleural effusion is present. Minimal improvement in aeration with left mid and lower lung consolidation and elevated hemidiaphragms. Osseous structures are intact. IMPRESSION: Minimal improvement in aeration overall with persistent left lung consolidations and elevated hemidiaphragms. There is gaseous distention of bowel loops. Electronically signed by: Reed Burger MD 05/25/2020 5:57 AM [employer]MI[employer] TECHNOLOGIST
[2020-05-25] MEDS: ALBUTEROL INHALER 64 PUFF/8GM INH SCH ×4 (07:55→20:25)
[2020-05-25] MEDS: METOPROLOL TARTRATE 50 MG TAB PO SCH ×2 (08:03→20:24)
[2020-05-25] MEDS: CLOPIDOGREL 75 MG TAB PO SCH (08:03)
[2020-05-25] MEDS: BIFIDOBACTERIUM INFANTIS 4 MG CAP PO SCH (08:03)
[2020-05-25] MEDS: guaiFENesin ER TAB 600 MG TAB PO SCH ×2 (08:03→20:25)
[2020-05-25] MEDS: DEXAMETHASONE INJ 10 MG/ML VIAL IV SCH ×2 (08:04→20:23)
[2020-05-25] MEDS: INSULIN DETEMIR 100 UNITS/ML PEN SUBCU SCH ×2 (08:04→20:37)
[2020-05-25] MEDS: amLODIPine BESYLATE 5 MG TAB PO SCH (08:04)
[2020-05-25] MEDS: GABAPENTIN 100 MG CAP PO SCH (08:04)
[2020-05-25] MEDS: ENOXAPARIN SODIUM 40 MG/0.4 ML SYG SUBCU SCH (08:04)
[2020-05-25] MEDS: INSULIN LISPRO 100 UNITS/ML PEN SUBCU SCH ×4 (08:05→20:37)
[2020-05-25] MEDS: ASPIRIN (ENTERIC COATED) 325 MG TAB PO SCH (08:05)
[2020-05-25] MEDS: LISINOPRIL 10 MG TAB PO SCH ×2 (08:05→20:24)
--- NOTE | 2020-05-25 08:27 | PN ---
SUPERVISING PHYSICIAN: Wagner Vergara MD DATE: 05/24/20 SUBJECTIVE: The patient is refusing to wear BiPAP. Last night, the nurses called me and he took it off and refused to put it back on. He seems to be maintaining okay on high flow nasal cannula around 7 to 8 liters and is in no distress. He has no other complaints, no chest pain, no abdominal pains, nausea, vomiting or diarrhea. He remains afebrile. OBJECTIVE: VITAL SIGNS: Temperature 97.8, pulse 95, blood pressure 105/70, respirations 20, saturation 90-95% on 7 liters nasal cannula at high flow. GENERAL: The patient is resting fairly comfortably on high flow nasal cannula. He is alert. CHEST: Lung sounds are fairly clear, just a little diminished towards the bases. HEART: Regular rate and rhythm. ABDOMEN: Obese, but soft and nontender. Positive bowel sounds. EXTREMITIES: No edema. NEUROLOGIC: Alert and oriented times three. LABORATORY: White count down to 15,100, hemoglobin 15.4, hematocrit 45.7. Differential shows a left shift, but no bands. Coagulation studies show D-dimer normalized. Chemistries show blood sugars ranging between 148 and 48. Creatinine 1.57, but serum osmolality is 310. BUN 72. Otherwise, other electrolytes are within normal limits. C-reactive protein 1.3. MICROBIOLOGY: Blood cultures are negative after 5 days. RADIOLOGY: Repeat chest x-ray this morning per radiologic interpretation shows worsening pneumonia. ASSESSMENT: 1. Acute hypoxemic respiratory failure. 2. COVID pneumonitis. 3. Diabetes mellitus, type 2. 4. Hypokalemia, resolved. 5. Hypertension. 6. Benign prostatic hypertrophy. 7. History of stroke. 8. Transaminitis. PLAN: We will continue with current plan of care on high flow nasal cannula to maintain his O2 saturations at least around 90-94%. He is tolerating that without any distress. He is refusing to wear his BiPAP. He has finished his dose of remdesivir and will remain on Decadron and continued antibiotic coverage with Rocephin. He looks to be a little dry on his labs, but we are trying to encourage oral intake. I do not really want to give him any IV fluids at this point with the concerning of putting him into further distress with mild fluid overload. We will continue with oral hydration. We will continue to follow his labs as needed and recheck chest x-ray in the morning. Hopefully, he will tolerate titration down on his FiO2 and once he gets to 4 liters, certainly he will be able to discharge. At this point, he is very frustrated, but seems to be doing okay. Until the patient can transition to outpatient management, we will continue to monitor and treat as needed. #[id number] [facility]
[2020-05-25] MEDS ORDERED: SODIUM CHLORIDE 0.9% 500ML 500 ML ONE (08:48)
[2020-05-25] MEDS ORDERED: SODIUM CHLORIDE 0.9% 250ML 250 ML IVS ONE ×2 (09:16→14:55)
[2020-05-25] MEDS: hydroCHLOROthiazide 25 MG TAB PO SCH (09:26)
[2020-05-25] MEDS ORDERED: levoFLOXacin 500MG IV 500 MG in PREMIX BAG 1 BAG IVPB ONE (09:49)
--- NOTE | 2020-05-25 13:42 | PN ---
SUPERVISING PHYSICIAN: Wagner Vergara MD DATE: 05/25/20 SUBJECTIVE: The patient has actually been able to function with physical therapy today without significant desaturations. He is certainly mildly tachypneic at times, but he is showing some improvement. His oxygen needs do not seem to be quite as extreme, maintaining on a little bit lower high flow at 6 liters. He has had some bowel movements. He is not having any abdominal pain. He has some mild hypotension at times, but he is pretty dry and he is responding well to some low fluids in the form of 250 cc bolus of normal saline. He does not seem to be having any complications. He is not having any other significant complaints. OBJECTIVE: VITAL SIGNS: Temperature 97.5, pulse 93, blood pressure 93/53, respirations 20, saturation 94% on 6 liters nasal cannula. GENERAL: The patient is resting fairly comfortably on nasal cannula. He is alert. CHEST: Lung sounds are fairly clear, just a little diminished towards the bases. HEART: Regular rate and rhythm. ABDOMEN: Obese, but soft and nontender. Positive bowel sounds. EXTREMITIES: No edema. NEUROLOGIC: Alert and oriented times three. LABORATORY: Chemistries show normal electrolytes. Creatinine 1.69. Blood sugars are down a little bit at 213. Calcium 8.2. C-reactive protein is normal at less than 0.8. MICROBIOLOGY: Blood cultures are negative after 5 days. RADIOLOGY: Repeat chest x-ray this morning per radiologic interpretation shows minimal improvement in aeration overall with persistent left lung consolidations and elevated hemidiaphragms. ASSESSMENT: 1. Acute hypoxemic respiratory failure. 2. COVID pneumonitis. 3. Diabetes mellitus, type 2. 4. Hypokalemia, resolved. 5. Hypertension. 6. Benign prostatic hypertrophy. 7. History of stroke. 8. Transaminitis. PLAN: He has finished his antibiotic regimen with azithromycin and Rocephin. Considering that he is still not making drastic progress and there seems to be consolidation more on the left, given his history, I am going to go ahead and start him on further coverage with Levaquin. We will do renal dose 500 mg initially and then follow this with 250 mg daily for at least 5 to 7 days. He remains on Decadron, Lovenox and sliding scale insulin, Mucinex, Align and Protonix. We will continue to titrate his oxygen as he tolerates down to below 4 liters at least and hopefully room air. Once he gets to 4 liters and can ambulate without significant distress, he will be a candidate for discharge. Hopefully this will occur within the next 24 to 48 hours. Until then, we will continue to monitor and treat as needed. [facility][id number] [facility]
[2020-05-25] MEDS: SIMVASTATIN 10 MG TAB PO SCH (20:24)
[2020-05-25] MEDS: PREGABALIN 75 MG CAP PO SCH (20:24)
[2020-05-26] MEDS: PANTOPRAZOLE SODIUM TAB 40 MG PO SCH (06:04)
[2020-05-26] MEDS ORDERED: LOPERAMIDE CAP 2 MG CAP PO ONE (06:37)
[2020-05-26] MEDS ORDERED: levoFLOXacin 250MG IV 50 ML IVPB ONE (07:09)
[2020-05-26] MEDS: INSULIN LISPRO 100 UNITS/ML PEN SUBCU SCH ×4 (07:20→21:02)
[2020-05-26] MEDS: ALBUTEROL INHALER 64 PUFF/8GM INH SCH ×4 (08:20→20:15)
[2020-05-26] MEDS: ASPIRIN (ENTERIC COATED) 325 MG TAB PO SCH (08:28)
[2020-05-26] MEDS: guaiFENesin ER TAB 600 MG TAB PO SCH ×2 (08:29→20:27)
[2020-05-26] MEDS: BIFIDOBACTERIUM INFANTIS 4 MG CAP PO SCH (08:29)
[2020-05-26] MEDS: ENOXAPARIN SODIUM 40 MG/0.4 ML SYG SUBCU SCH (08:29)
[2020-05-26] MEDS: CLOPIDOGREL 75 MG TAB PO SCH (08:30)
[2020-05-26] MEDS: amLODIPine BESYLATE 5 MG TAB PO SCH (08:30)
[2020-05-26] MEDS: METOPROLOL TARTRATE 50 MG TAB PO SCH ×2 (08:31→20:27)
[2020-05-26] MEDS: LISINOPRIL 10 MG TAB PO SCH ×2 (08:31→20:27)
[2020-05-26] MEDS: GABAPENTIN 100 MG CAP PO SCH (08:31)
[2020-05-26] MEDS: DEXAMETHASONE INJ 10 MG/ML VIAL IV SCH ×2 (08:32→20:27)
[2020-05-26] MEDS: INSULIN DETEMIR 100 UNITS/ML PEN SUBCU SCH ×2 (08:33→21:02)
[2020-05-26] MEDS: levoFLOXacin 250MG IV 250 MG in PREMIX BAG 1 BAG IVPB SCH (09:38)
--- NOTE | 2020-05-26 14:34 | PN ---
SUPERVISING PHYSICIAN: Wagner Vergara MD DATE: 05/26/20 SUBJECTIVE: The patient looks a little better today. He is not quite as shortness of breath. He is not tachypneic. He has actually been able to tolerate further decrease in nasal cannula flow. He did have some diarrhea after he was started on Levaquin but has not had any positive C. diff testing. He has had no further complaints after that and seems to be okay. No chest pains. No nausea, he has been afebrile. OBJECTIVE: VITAL SIGNS: Temperature 98.0, pulse 96, blood pressure 116/79, respirations 20 to 22, oxygen saturation 93% to 94% on 5 liters nasal cannula at rest. GENERAL: The patient is resting fairly comfortably on nasal cannula. He is alert. CHEST: Lung sounds are fairly clear, just a little diminished towards the bases. HEART: Regular rate and rhythm. ABDOMEN: Obese, but soft and nontender. Positive bowel sounds. EXTREMITIES: No edema. NEUROLOGIC: Alert and oriented times three. LABORATORY: White count down to 13,800, hemoglobin 15.1, hematocrit 44.2, platelet count 361,000. Differential does show a slight left shift which is improving. D-dimer normalized. Chemistries show a little bit of low potassium at 3.4, otherwise, electrolytes within normal limits. Creatinine 1.64, BUN continues to be elevated at 91. Blood sugars are better controlled now from 175 to 182. Calcium 8.1. MICROBIOLOGY: Blood cultures are negative after 5 days. RADIOLOGY: No additional radiographic studies today. ASSESSMENT: 1. Acute hypoxemic respiratory failure. 2. COVID pneumonitis. 3. Diabetes mellitus, type 2. 4. Hypokalemia, resolved. 5. Hypertension. 6. Benign prostatic hypertrophy. 7. History of stroke. 8. Transaminitis. PLAN: We will continue to titrate his oxygen needs as he tolerates to get him down at least below 5 liters in anticipation of discharge home on oxygen. He is doing okay on Levaquin which has been renally dosed. If he continues to have a significant amount of diarrhea, certainly we will do another C diff test. He does remain on Decadron, Align, Protonix and Levaquin. He remains on aggressive pulmonary hygiene. Hopefully, we will be able to titrate his oxygen down and discharge within the next 24-48 hours. Until then, we will continue to monitor and treat as needed. #[id number] [facility]
[2020-05-26] MEDS: SIMVASTATIN 10 MG TAB PO SCH (20:27)
[2020-05-26] MEDS: PREGABALIN 75 MG CAP PO SCH (20:27)
[2020-05-27] MEDS: PANTOPRAZOLE SODIUM TAB 40 MG PO SCH (06:10)
[2020-05-27] MEDS: INSULIN LISPRO 100 UNITS/ML PEN SUBCU SCH ×4 (07:09→20:40)
[2020-05-27] MEDS: ALBUTEROL INHALER 64 PUFF/8GM INH SCH ×4 (08:30→21:15)
--- NOTE | 2020-05-27 09:02 | RAD ---
EXAM DESCRIPTION: Chest,1 View CLINICAL HISTORY: 75 years Male COVID PNA COMPARISON: Portable chest dated 05/25/2020 TECHNIQUE: Portable AP view of the chest is obtained. FINDINGS IN THE CHEST: Heart: Allowing for magnification factors related to AP portable technique and body habitus, the heart is normal in size and configuration. Vasculature: [] There is no evidence of aortic aneurysm or acute findings. The pulmonary vascularity is normal. Mediastinum: No evidence of mass or adenopathy. Lungs: The study is obtained during a markedly suboptimal depth of inspiration with resultant markedly decreased lung volumes, greater than previously demonstrated. There is elevation of the right hemidiaphragm which is probably congenital eventration. Phrenic nerve injury or palsy also considerations. There is diffuse groundglass opacification throughout the left lung which may be exaggerated by hypoventilation. However the left hemidiaphragm and left heart border are now indiscernible with more dense consolidation inferiorly. Minimal patchy density is noted in the right lung. Pleura: Layering left pleural fluid is not excludable. There is no significant right pleural fluid. There are no pneumothoraces. Osseous structures: No evidence of acute fracture, osteolytic lesions or osteoblastic lesions. Tubes and catheters: None Chest wall: Unremarkable. Visualized Abdomen: Unremarkable. IMPRESSION: There is diffuse groundglass opacification throughout the left lung which may be exaggerated by hypoventilation. However the left hemidiaphragm and left heart border are now indiscernible with more dense consolidation inferiorly. Minimal patchy density is noted in the right lung. Remainder of findings as described above. Electronically signed by: Ana Rosa Flower MD 05/27/2020 9:01 AM [facility]
[2020-05-27] MEDS: levoFLOXacin 250MG IV 250 MG in PREMIX BAG 1 BAG IVPB SCH (09:12)
[2020-05-27] MEDS: ENOXAPARIN SODIUM 40 MG/0.4 ML SYG SUBCU SCH (09:13)
[2020-05-27] MEDS: amLODIPine BESYLATE 5 MG TAB PO SCH (09:13)
[2020-05-27] MEDS: GABAPENTIN 100 MG CAP PO SCH (09:13)
[2020-05-27] MEDS: BIFIDOBACTERIUM INFANTIS 4 MG CAP PO SCH (09:13)
[2020-05-27] MEDS: METOPROLOL TARTRATE 50 MG TAB PO SCH ×2 (09:13→20:38)
[2020-05-27] MEDS: LISINOPRIL 10 MG TAB PO SCH ×2 (09:13→20:38)
[2020-05-27] MEDS: DEXAMETHASONE INJ 10 MG/ML VIAL IV SCH ×2 (09:14→20:37)
[2020-05-27] MEDS: ASPIRIN (ENTERIC COATED) 325 MG TAB PO SCH (09:14)
[2020-05-27] MEDS: guaiFENesin ER TAB 600 MG TAB PO SCH ×2 (09:16→20:38)
[2020-05-27] MEDS: CLOPIDOGREL 75 MG TAB PO SCH (09:16)
[2020-05-27] MEDS: INSULIN DETEMIR 100 UNITS/ML PEN SUBCU SCH ×2 (10:01→20:40)
--- NOTE | 2020-05-27 14:47 | PN ---
SUPERVISING PHYSICIAN: Wagner Vergara MD DATE: 05/27/20 SUBJECTIVE: The patient is sitting up in bed. Nursing reported earlier he was going to leave. We discussed leaving the hospital and we were trying to treat his COVID and that he would have a difficult time if he did actually leave the hospital. He said he was just frustrated and agreed to stay. OBJECTIVE: VITAL SIGNS: Temperature 97.8, heart rate 112, blood pressure 115/68, respiratory rate 24, O2 saturation 89% on high flow nasal cannula. RESPIRATORY: Diminished throughout all lung lopez. CARDIAC: Tachycardic rate and regular rhythm. NEUROLOGIC: Awake and alert. LABORATORY: WBCs 12,500, hemoglobin 14.9, hematocrit 43.8. He has a left shift on differential. D-dimer 397. Electrolytes are basically within normal limits with the exception of his calcium slightly low at 8.2. BUN 89, creatinine 1.59. RADIOLOGY: Chest x-ray shows diffuse ground glass opacifications throughout the left lung which may be exaggerated by hypoventilation. However, the left hemidiaphragm and left heart border are now indiscernible with more dense consolidation inferiorly and patchy density is noted in the right lung. Remainder of the findings are as per the report.All other labs and films have been reviewed via the EMR. ASSESSMENT: 1. Acute hypoxemic respiratory failure. 2. COVID pneumonitis. 3. Diabetes mellitus, type 2. 4. Hypokalemia, resolved. 5. Hypertension. 6. Benign prostatic hypertrophy. 7. History of stroke. 8. Transaminitis. PLAN: We will continue present supportive care and continue to wean oxygen as tolerated. I have ordered lab for in the morning. We will follow COVID guidelines as previously ordered. #[id number] [facility]
[2020-05-27] MEDS: SIMVASTATIN 10 MG TAB PO SCH (20:38)
[2020-05-27] MEDS: TEMAZEPAM 15 MG CAP PO PRN (20:38)
[2020-05-27] MEDS: PREGABALIN 75 MG CAP PO SCH (20:38)
[2020-05-28] MEDS: IV SET AND CAP CHANGE INJ INJ SCH (00:30)
[2020-05-28] MEDS: PANTOPRAZOLE SODIUM TAB 40 MG PO SCH (06:17)
[2020-05-28] MEDS: INSULIN LISPRO 100 UNITS/ML PEN SUBCU SCH ×4 (07:18→20:39)
[2020-05-28] MEDS: INSULIN DETEMIR 100 UNITS/ML PEN SUBCU SCH ×2 (07:19→20:39)
[2020-05-28] MEDS: ALBUTEROL INHALER 64 PUFF/8GM INH SCH ×4 (07:45→22:00)
[2020-05-28] MEDS: LISINOPRIL 10 MG TAB PO SCH ×2 (08:25→20:38)
[2020-05-28] MEDS: CLOPIDOGREL 75 MG TAB PO SCH (08:25)
[2020-05-28] MEDS: amLODIPine BESYLATE 5 MG TAB PO SCH (08:25)
[2020-05-28] MEDS: METOPROLOL TARTRATE 50 MG TAB PO SCH ×2 (08:26→20:38)
[2020-05-28] MEDS: levoFLOXacin 250MG IV 250 MG in PREMIX BAG 1 BAG IVPB SCH (08:26)
[2020-05-28] MEDS: ASPIRIN (ENTERIC COATED) 325 MG TAB PO SCH (08:26)
[2020-05-28] MEDS: GABAPENTIN 100 MG CAP PO SCH (08:26)
[2020-05-28] MEDS: BIFIDOBACTERIUM INFANTIS 4 MG CAP PO SCH (08:26)
[2020-05-28] MEDS: DEXAMETHASONE INJ 10 MG/ML VIAL IV SCH (08:26)
[2020-05-28] MEDS: guaiFENesin ER TAB 600 MG TAB PO SCH ×2 (08:26→20:38)
--- NOTE | 2020-05-28 15:45 | PN ---
SUPERVISING PHYSICIAN: Ayan Dalton MD DATE: 05/28/20 SUBJECTIVE: The patient is sitting up in bed. He wants to go home. I discussed it with him that he would need to continue further treatment and we would discharge him as soon as possible, as his condition allows. The patient agreed. OBJECTIVE: VITAL SIGNS: Temperature 97.5, heart rate 94, blood pressure 124/88, respiratory rate 18, O2 saturation 94% on 3 liters nasal cannula. RESPIRATORY: Diminished at the bases. CARDIAC: Regular rate and rhythm. NEUROLOGIC: Awake, alert and oriented x3. LABORATORY: WBCs 13,900, hemoglobin 15.4, hematocrit 45.6. He has a left shift on differential. D-dimer 706. Electrolytes are basically within normal limits. BUN 77, creatinine 1.46. ALT 77. ASSESSMENT: 1. Acute hypoxemic respiratory failure. 2. COVID pneumonitis. 3. Diabetes mellitus, type 2. 4. Hypokalemia, resolved. 5. Hypertension. 6. Benign prostatic hypertrophy. 7. History of stroke. 8. Transaminitis. PLAN: We will continue present supportive care and continue to wean oxygen as tolerated. I have ordered an ambulation study for tomorrow in case he needs to go home on oxygen. He will have aggressive pulmonary hygiene. I have ordered lab and x-ray for in the morning. [facility][id number] [facility]
[2020-05-28] MEDS: SIMVASTATIN 10 MG TAB PO SCH (20:37)
[2020-05-28] MEDS: PREGABALIN 75 MG CAP PO SCH (20:37)
[2020-05-28] MEDS: TEMAZEPAM 15 MG CAP PO PRN (20:38)
[2020-05-29] MEDS: PANTOPRAZOLE SODIUM TAB 40 MG PO SCH (06:24)
--- NOTE | 2020-05-29 07:38 | RAD ---
Exam(s): XR CHEST 1 VIEW: 05/29/2020 7:00 AM [employer] Indication: covid Comparison Study Date: 05/27/2020 Technique: AP chest radiograph. Findings: Similar appearance of the chest compared with previous exam. There is elevation of the RIGHT hemidiaphragm, with poor visualization of the RIGHT lung base. There is moderate opacification of the LEFT hemithorax. No pleural effusion or pneumothorax. Grossly normal and unchanged heart and mediastinal contours, given limitations of this exam. No bone abnormality is identified. IMPRESSION: Similar appearance of the chest compared with previous exam. Electronically signed by: Keo Swain MD 05/29/2020 7:37 AM [employer] [employer]
[2020-05-29] MEDS: INSULIN LISPRO 100 UNITS/ML PEN SUBCU SCH ×4 (07:51→20:35)
[2020-05-29] MEDS: BIFIDOBACTERIUM INFANTIS 4 MG CAP PO SCH (09:26)
[2020-05-29] MEDS: GABAPENTIN 100 MG CAP PO SCH (09:26)
[2020-05-29] MEDS: METOPROLOL TARTRATE 50 MG TAB PO SCH ×2 (09:26→20:25)
[2020-05-29] MEDS: guaiFENesin ER TAB 600 MG TAB PO SCH ×2 (09:26→20:25)
[2020-05-29] MEDS: ASPIRIN (ENTERIC COATED) 325 MG TAB PO SCH (09:27)
[2020-05-29] MEDS: LISINOPRIL 10 MG TAB PO SCH ×2 (09:27→20:25)
[2020-05-29] MEDS: amLODIPine BESYLATE 5 MG TAB PO SCH (09:27)
[2020-05-29] MEDS: INSULIN DETEMIR 100 UNITS/ML PEN SUBCU SCH ×2 (09:27→20:35)
[2020-05-29] MEDS: CLOPIDOGREL 75 MG TAB PO SCH (09:27)
[2020-05-29] MEDS: levoFLOXacin 250MG IV 250 MG in PREMIX BAG 1 BAG IVPB SCH (09:28)
[2020-05-29] MEDS: ALBUTEROL INHALER 64 PUFF/8GM INH SCH ×4 (09:35→20:35)
[2020-05-29] MEDS: DEXAMETHASONE INJ 4 MG/ML VIAL IV SCH (12:13)
--- NOTE | 2020-05-29 15:50 | PN ---
SUPERVISING PHYSICIAN: Ayan Dalton MD DATE: 05/29/20 SUBJECTIVE: The patient is lying bed and is asleep. He awakens easily. He continues to improve and his shortness of breath is much better. He denies nausea, vomiting or chest pain. OBJECTIVE: VITAL SIGNS: Temperature 97.9, heart rate 96, blood pressure 117/68, respiratory rate 20, O2 saturation 94% on 2 liters nasal cannula. RESPIRATORY: Somewhat diminished at the bases, but otherwise clear to auscultation. CARDIAC: Regular rate and rhythm. NEUROLOGIC: Awake, alert and oriented x3. LABORATORY: WBCs improved to 11,900, hemoglobin 15, hematocrit 45.5. He has a left shift on differential. D-dimer 663. Electrolytes are basically within normal limits with the exception of calcium slightly low at 2.9, magnesium 2.7. BUN 56, creatinine 1.16. C-reactive protein less than 0.08. RADIOLOGY: Chest x-ray shows similar appearance of chest compared to previous exam. ASSESSMENT: 1. Acute hypoxemic respiratory failure. 2. COVID pneumonitis. 3. Diabetes mellitus, type 2. 4. Hypokalemia, resolved. 5. Hypertension. 6. Benign prostatic hypertrophy. 7. History of stroke. 8. Transaminitis. PLAN: We will continue present supportive care. I am wanting his ambulation study and he may need to be discharged on oxygen. That is in the process of being ordered. I have ordered lab for in the morning and hold on x-ray. Hopefully, he can be discharged in the next 24 to 48 hours. #[id number] [facility]
[2020-05-29] MEDS: ACETAMINOPHEN 325 MG TAB PO PRN (17:02)
[2020-05-29] MEDS ORDERED: ENOXAPARIN SODIUM 40 MG/0.4 ML SYG SUBCU ONE (18:46)
[2020-05-29] MEDS: ENOXAPARIN SODIUM 40 MG/0.4 ML SYG SUBCU SCH (20:25)
[2020-05-29] MEDS: SIMVASTATIN 10 MG TAB PO SCH (20:25)
[2020-05-29] MEDS: TEMAZEPAM 15 MG CAP PO PRN (20:25)
[2020-05-29] MEDS: PREGABALIN 75 MG CAP PO SCH (20:25)
[2020-05-30] MEDS: PANTOPRAZOLE SODIUM TAB 40 MG PO SCH (06:18)
[2020-05-30] MEDS: INSULIN LISPRO 100 UNITS/ML PEN SUBCU SCH ×4 (07:58→21:05)
[2020-05-30] MEDS: ALBUTEROL INHALER 64 PUFF/8GM INH SCH ×4 (09:20→22:50)
[2020-05-30] MEDS: amLODIPine BESYLATE 5 MG TAB PO SCH (09:33)
[2020-05-30] MEDS: METOPROLOL TARTRATE 50 MG TAB PO SCH ×2 (09:33→20:38)
[2020-05-30] MEDS: DEXAMETHASONE INJ 4 MG/ML VIAL IV SCH (09:34)
[2020-05-30] MEDS: GABAPENTIN 100 MG CAP PO SCH (09:34)
[2020-05-30] MEDS: guaiFENesin ER TAB 600 MG TAB PO SCH ×2 (09:34→20:38)
[2020-05-30] MEDS: ASPIRIN (ENTERIC COATED) 325 MG TAB PO SCH (09:34)
[2020-05-30] MEDS: levoFLOXacin 250MG IV 250 MG in PREMIX BAG 1 BAG IVPB SCH (09:34)
[2020-05-30] MEDS: INSULIN DETEMIR 100 UNITS/ML PEN SUBCU SCH ×2 (09:34→21:05)
[2020-05-30] MEDS: LISINOPRIL 10 MG TAB PO SCH ×2 (09:34→20:38)
[2020-05-30] MEDS: CLOPIDOGREL 75 MG TAB PO SCH (09:34)
[2020-05-30] MEDS: BIFIDOBACTERIUM INFANTIS 4 MG CAP PO SCH (09:34)
[2020-05-30] MEDS: SIMVASTATIN 10 MG TAB PO SCH (20:38)
[2020-05-30] MEDS: PREGABALIN 75 MG CAP PO SCH (20:38)
[2020-05-30] MEDS: ENOXAPARIN SODIUM 40 MG/0.4 ML SYG SUBCU SCH (20:38)
[2020-05-30] MEDS: TEMAZEPAM 15 MG CAP PO PRN (20:38)
[2020-05-30] MEDS: IV SET AND CAP CHANGE INJ INJ SCH (23:22)
[2020-05-31] MEDS: PANTOPRAZOLE SODIUM TAB 40 MG PO SCH (05:57)
[2020-05-31] MEDS: INSULIN LISPRO 100 UNITS/ML PEN SUBCU SCH ×2 (08:18→13:09)
--- NOTE | 2020-05-31 08:19 | PN ---
SUPERVISING PHYSICIAN: Ayan Dalton MD DATE: 05/30/20 SUBJECTIVE: The patient is sitting up in bed. He still has his oxygen in place and is quite ready to get out of the hospital. Otherwise, no complaints. OBJECTIVE: VITAL SIGNS: Temperature 98.1, heart rate 93, blood pressure 115/67, respiratory rate 18, O2 saturation 94% on 2 liters nasal cannula. RESPIRATORY: Essentially clear to auscultation bilaterally. CARDIAC: Regular rate and rhythm. NEUROLOGIC: Awake, alert and oriented x3. LABORATORY: WBCs 12,200, hemoglobin 14.7, hematocrit 44.15 He has a left shift on differential. D-dimer 665. Electrolytes are within normal limits with BUN 41, creatinine 0.98. C-reactive protein less than 0.08. All other labs and films have been reviewed via the EMR. ASSESSMENT: 1. Acute hypoxemic respiratory failure. 2. COVID pneumonitis. 3. Diabetes mellitus, type 2. 4. Hypokalemia, resolved. 5. Hypertension. 6. Benign prostatic hypertrophy. 7. History of stroke. 8. Transaminitis. PLAN: We will continue present supportive care and continue to wean oxygen as tolerated. His O2 order has been sent into the [facility] and hopefully he can discharge in the next 1 to 2 days, as soon as he can get his oxygen. Otherwise, we will continue aggressive pulmonary hygiene. I have ordered labs for in the morning. #[id number] [facility]
[2020-05-31] MEDS: METOPROLOL TARTRATE 50 MG TAB PO SCH (09:27)
[2020-05-31] MEDS: guaiFENesin ER TAB 600 MG TAB PO SCH (09:27)
[2020-05-31] MEDS: DEXAMETHASONE INJ 4 MG/ML VIAL IV SCH (09:27)
[2020-05-31] MEDS: BIFIDOBACTERIUM INFANTIS 4 MG CAP PO SCH (09:27)
[2020-05-31] MEDS: amLODIPine BESYLATE 5 MG TAB PO SCH (09:27)
[2020-05-31] MEDS: ASPIRIN (ENTERIC COATED) 325 MG TAB PO SCH (09:27)
[2020-05-31] MEDS: LISINOPRIL 10 MG TAB PO SCH (09:27)
[2020-05-31] MEDS: CLOPIDOGREL 75 MG TAB PO SCH (09:27)
[2020-05-31] MEDS: GABAPENTIN 100 MG CAP PO SCH (09:27)
[2020-05-31] MEDS: levoFLOXacin 250MG IV 250 MG in PREMIX BAG 1 BAG IVPB SCH (09:28)
[2020-05-31] MEDS: INSULIN DETEMIR 100 UNITS/ML PEN SUBCU SCH (09:28)
[2020-05-31] MEDS: ALBUTEROL INHALER 64 PUFF/8GM INH SCH ×2 (09:48→12:40)
[2020-05-31 10:23] VITALS: TEMP 97.7; O2SAT 93
[2020-05-31 14:27] VITALS: BP 109/70
--- NOTE | 2020-06-06 14:00 | DS ---
SUPERVISING PHYSICIAN: Ayan Dalton MD ADMISSION DIAGNOSIS: 1. COVID pneumonitis. 2. Hypoxic respiratory failure with mild respiratory associated alkalosis secondary to #1. 3. Diabetes mellitus type on oral therapy. 4. Hypokalemia and hypomagnesemia. 5. Hypertension. 6. Benign prostatic hypertrophy. 7. Previous cerebrovascular accident in 2016. No obvious neurologic deficits on admission. DISCHARGE DIAGNOSIS: 1. Acute hypoxemic respiratory failure. 2. COVID pneumonitis. 3. Diabetes mellitus, type 2. 4. Hypokalemia, resolved. 5. Hypertension. 6. Benign prostatic hypertrophy. 7. History of stroke. 8. Transaminitis. REASON FOR HOSPITALIZATION: Mr. Shen is a 75 year-old male with a history of diabetes, hypertension and a previous CVA. He presented to the Emergency Department at the request of his . Apparently, he had been having some increasing shortness of breath along with uncontrollable cough. He denies any known exposures to COVID and he is not aware that he has had any immunization in regard to treatment. Initial laboratory studies showed a white count of 5,200 with a low lymphocytic count. Coagulation studies did show a D- dimer elevated at 829 and blood gas analysis showed hypoxemia with a P02 of 5, that was on 4 liter nasal cannula with pH 7.48, PC02 was normal at 35, bicarb normal and base excess normal. C-reactive protein was elevated at 13.6, lactic acid was normal at 2.2. Chest x-ray, single-view in the Emergency Room per radiology interpretation, showed bilateral airspace opacities, worse on the left, findings were suspicious for atypical infections including COVID pneumonia. His respiratory panel was positive for COVID, negative for influenza and all other bacterial and viral targets as tested. His initial vital signs showed oxygen saturation 82% on room air. He was given breathing treatments and started on nasal cannula which increased his 02 saturation up to 92%. He was started on ceftriaxone and azithromycin and given Decadron. He is not going to be admitted for treatment of COVID pneumonitis. He was admitted in stable condition. LABORATORY: White count on discharge was 12,900, hemoglobin 14.7, hematocrit 43.0, platelet count 175,000. Differential continued to show a left shift. Coagulation studies showed D-dimer went up to a maximum of 706. At discharge, it was down to 571. Chemistry on discharge showed normal electrolytes, creatinine 1.01. Blood sugars range between 67 and 240. Calcium 7.7 corrected to 8.2 for albumin of 2.2. Magnesium normal at 2.1. Liver functions all within normal limits. C-reactive protein started at 13.6 and by was discharge was down to 0.9. Lactic acid on admission was normal at 2.2. Troponins were all within normal limits at 0.005. MICROBIOLOGY: C. difficile toxin A and B were negative. Respiratory panel was positive for COVID, negative for all other bacterial and viral targets as tested including influenza. He had two sets of blood cultures that were negative after 5 days. RADIOLOGY: Multiple chest x-ray were done while in the hospital. Initial chest x-ray on admission on 05/18/20 showed bilateral airspace opacities, worse on the left, findings suspicious for atypical infection including COVID pneumonia. Final chest x-ray done on 05/29/20 showed elevation of right hemidiaphragm with moderate opacification of the left hemithorax. Please see those reports for details. EK-lead EKG on admission showed sinus tachycardia at [address] or T-wave changes to indicate acute ischemia or acute coronary syndrome. HOSPITAL COURSE: Mr. Shen was admitted initially on 05/18/20 for treatment of COVID pneumonitis/pneumonia. He was started on full treatment with remdesivir, Decadron, azithromycin, Rocephin, Lovenox and Protonix. He was on DVT prophylaxis with Lovenox and sliding scale insulin per protocol. He progressed slowly and did require some product development assistant with noninvasive ventilation in the form of BiPAP, but was able to titrate off BiPAP to nasal cannula. On the day of discharge, an ambulation study showed saturation 90% on 2 liters nasal cannula and dropped down to 86% after 2 minutes of ambulation. He improved to 90% at rest. He did not have any complaints of shortness of breath or any respiratory distress. He also had physical therapy while in the hospital. Given his need for oxygen, arrangements were made for home oxygen. It was felt he had clinically improved well enough on the day of discharge as he was showing vital signs of temperature 97.7, pulse 82, blood pressure 109/70, respiratory rate 20 with resting saturation 96% and 93% on nasal cannula 2 liters on ambulation. PLAN: Mr. Shen was discharged on 05/31/20 with instructions to followup with Dr. Powers on 06/06/20 at 13:30. He was to call Dr. Powers to establish date and time. He was given oxygen at home to wear as directed with nasal cannula. He was to resume his diabetic diet. He was to increase activity as tolerated. He was given instructions to return to the ER or call Dr. Powers' office for any concerning symptoms. Medications prescribed on discharge included: 1. Align 4 mg daily while on antibiotics. 2. Levaquin 250 mg daily for 5 days. 3. Guaifenesin 600 mg twice daily while on antibiotics, no refills. 4. Albuterol inhaler 2 puffs q.4h. as needed or sooner for shortness of breath, #1 inhaler, no refills. DISPOSITION: The patient was discharged home. CONDITION ON DISCHARGE: Stable and improved. [id number] [facility]
== END 2020-05-31 16:15 | disposition home or self-care (01) | DRG 177 ==
LOC: ER 18:17 → MS 21:50 → OBSVTOIN 21:50
PROVIDERS: ADMIT Nurse Practitioner Family; ATTEND Nurse Practitioner Family
PROC: XW033E5 Introduction of Remdesivir Anti-infective into Peripheral Vein, Percutaneous Approach, New Technology Group 5 (ICD-10-PCS; principal; 2020-05-18)
PROC: 5A0955A Assistance with Respiratory Ventilation, Greater than 96 Consecutive Hours, High Flow/Velocity Cannula (ICD-10-PCS; 2020-05-18)
DX: U07.1 COVID-19 (principal); J12.82 Pneumonia due to coronavirus disease 2019; J96.01 Acute respiratory failure with hypoxia; E87.3 Alkalosis; E11.9 Type 2 diabetes mellitus without complications; E87.6 Hypokalemia; E83.42 Hypomagnesemia; I10 Essential (primary) hypertension; N40.0 Benign prostatic hyperplasia without lower urinary tract symptoms; R74.01 Elevation of levels of liver transaminase levels; Z86.73 Personal history of transient ischemic attack (TIA), and cerebral infarction without residual deficits; Z79.02 Long term (current) use of antithrombotics/antiplatelets; Z79.82 Long term (current) use of aspirin; Z79.84 Long term (current) use of oral hypoglycemic drugs; Z88.0 Allergy status to penicillin; Z79.899 Other long term (current) drug therapy